=== PATIENT | male | born 1990 | race African-American/Black ===

== ENCOUNTER 2018-02-07 00:11 | Emergency (ER) | payer MEDICAID, SELFPAY ==
[2018-02-07 00:12] VITALS: BP 134/75; PULSE 70; RESP 16; TEMP 36.9; O2SAT 97; BMI 20.3
--- NOTE | 2018-02-07 00:31 | ED.VISSUMM ---
- ER Visit Summary Date of Service: 02/07/18 Chief Complaint: [] Developed nausea and vomiting yesterday 2 episodes today and yesterday. No blood. 2 episodes of loose watery diarrhea today. No home treatment. Positive sick contacts with the same. History of Present Illness: The patient is a 27 M [] Physical Examination: [] Vital signs reviewed General: Well-nourished well-developed Head: Normocephalic atraumatic Eyes: Pupils equal round and reactive to light extraocular movements intact ENT: TMs clear no hemotympanum no trauma Neck: Nontender full range of motion Cardiovascular: Regular rate rhythm no murmurs normal S1-S2 Respiratory: No distress clear to auscultation bilaterally chest nontender Abdomen: Soft nontender nondistended normal bowel sounds no masses Back: Nontender no CVA tenderness Extremities: Nontender active range of motion ?4 extremities no trauma Skin: Normal color no trauma Neuro alert oriented cranial nerves II through XII intact normal strength sensation reflexes Test Results: [] Emergency Department Course and Treatment: [] Patient nontoxic. Abdominal exam benign. I think he likely has the stomach flu. Given Zofran and Imodium in the department and will continue these at home. Treatment Plan: [] Disposition: [] Impression: [] Nausea vomiting, diarrhea This note was generated with [employer] dictation software. It may contain incorrect words, spelling, and punctuation that were not noted in review of the chart prior to signing ED Disposition - Plan for ED Patient: Chief Complaint: Nausea/Vomiting/Diarrhea Referrals: Care Physician,No Primary [Primary Care Provider] -
--- NOTE | 2018-02-07 00:32 | ED.DEP ---
ED Disposition - Plan for ED Patient: Disposition: Home or Assisted Living Chief Complaint: Nausea/Vomiting/Diarrhea Instructions: ED Diet Vomiting Diarrhea Prescriptions: Ondansetron [Zofran Odt] 4 mg PO Q8H PRN PRN #10 tab PRN Reason: Nausea Referrals: Care Physician,No Primary [Primary Care Provider] - Jaylen Valdivia DO [NON CLINICAL AFFILIATE] -
[2018-02-07] MEDS: Loperamide 2 MG Capsule 4 MG PO (00:40)
[2018-02-07] MEDS: Ondansetron ODT 4 MG Tablet 8 MG PO (00:40)
[2018-02-07 00:45] VITALS: PULSE 85; O2SAT 100
== END 2018-02-07 00:46 | disposition home or self-care (01) ==
LOC: ED 00:36
PROVIDERS: Emergency Provider Emergency Medicine
DX: R11.2 Nausea with vomiting, unspecified (principal); R19.7 Diarrhea, unspecified
CPT/HCPCS: 99283

== ENCOUNTER 2018-02-19 16:17 | Emergency (ER) | payer MEDICAID, SELFPAY ==
[2018-02-19 16:18] VITALS: BP 146/84; PULSE 65; RESP 16; TEMP 36.6; O2SAT 100; BMI 20.3
--- NOTE | 2018-02-19 16:47 | RAD_ITS ---
STUDY: X-RAY - RIGHT SHOULDER REASON FOR EXAM: Male, 27 years old. Pain TECHNIQUE: 4 view(s) of the shoulder. COMPARISON: None. FINDINGS: There is no evidence of fracture or dislocation. There are no significant degenerative changes. There are no radiodense foreign bodies. RAD/Shoulder min 2 Views IMPRESSION: No fracture or dislocation. Electronically Signed: Bladimir Man, at 17:03 EDT Tel , Service support ,
--- NOTE | 2018-02-19 17:27 | ED.VISSUMM ---
- ER Visit Summary Date of Service: 02/19/18 Chief Complaint: Shoulder pain after landing on the right shoulder on the ground while playing football. History of Present Illness: The patient is a 27 M [id number]. He is playing football on Monday dove for a ball landed awkwardly on his right shoulder since that time he had pain in the right shoulder and decreased range of motion. No prior right shoulder surgery. No significant prior right shoulder injury. He denies any other injuries. Physical Examination: Well-appearing young male. Vital signs are stable afebrile. H EENT exam unremarkable atraumatic. C-spine nontender. Trachea midline. Lungs clear to auscultation bilaterally. Heart rate and rhythm no murmur. Chest wall nontender. Abdomen soft nontender nondistended no giving or masses. Normal bowel sounds no peritoneal signs. Pelvic girdle intact. Left upper and both lower extremities are nontender normal range of motion. No gross bony deformities. Neurovascular intact. Right shoulder is pain on palpation to the deltoid of his right shoulder. There is no bony deformity of the clavicle. He has decreased range of motion of the right shoulder with ABD duction and try to raise his shoulder above his head. There is no signs of dislocation. No bony deformity. The mid shaft distal humerus is nontender. He has full range of motion of the right elbow with no swelling or tenderness. The entire right forearm is nontender. No deformity. Normal range of motion to the elbow and wrist. Normal radial pulse to palpation. 5 out of 5 air traffic controller strength in the right hand nontender no deformity. Otherwise exam unremarkable. The shoulder blade is nontender. Test Results: Right shoulder x-ray shows no acute abnormality read both by myself and the radiologist. No fracture or dislocation. Emergency Department Course and Treatment: Pt. will be straight treated as a right shoulder strain and contusion. However if this does not improve he will be instructed to follow-up with Dr. Oziel Blake project economist for orthopedics for further evaluation of the right shoulder. Clinically and historically be very uncommon for this to be a rotator cuff injury. However if it does not improve and does not gain range of motion back he may need more advanced imaging. Treatment Plan: Ice to the right shoulder. Motrin for pain and inflammation. Call follow-up with Dr. Oziel Blake of orthopedics if your pain is not improving and he did not regain full range of motion for further evaluation. Disposition: Discharge Impression: Acute right shoulder pain and decreased range of motion secondary to shoulder contusion and strain. This note was generated with [employer] dictation software. It may contain incorrect words, spelling, and punctuation that were not noted in review of the chart prior to signing ED Disposition - Plan for ED Patient: Chief Complaint: Upper Extremity Injury Referrals: Care Physician,No Primary [Primary Care Provider] -
--- NOTE | 2018-02-19 17:31 | ED.DCSUM_ITS ---
- ER Visit Summary Date of Service: 02/19/18 Chief Complaint: Shoulder pain after landing on the right shoulder on the ground while playing football. History of Present Illness: The patient is a 27 M [id number]. He is playing football on Monday dove for a ball landed awkwardly on his right shoulder since that time he had pain in the right shoulder and decreased range of motion. No prior right shoulder surgery. No significant prior right shoulder injury. He denies any other injuries. Physical Examination: Well-appearing young male. Vital signs are stable afebrile. H EENT exam unremarkable atraumatic. C-spine nontender. Trachea midline. Lungs clear to auscultation bilaterally. Heart rate and rhythm no murmur. Chest wall nontender. Abdomen soft nontender nondistended no giving or masses. Normal bowel sounds no peritoneal signs. Pelvic girdle intact. Left upper and both lower extremities are nontender normal range of motion. No gross bony deformities. Neurovascular intact. Right shoulder is pain on palpation to the deltoid of his right shoulder. There is no bony deformity of the clavicle. He has decreased range of motion of the right shoulder with ABD duction and try to raise his shoulder above his head. There is no signs of dislocation. No bony deformity. The mid shaft distal humerus is nontender. He has full range of motion of the right elbow with no swelling or tenderness. The entire right forearm is nontender. No deformity. Normal range of motion to the elbow and wrist. Normal radial pulse to palpation. 5 out of 5 student development dean strength in the right hand nontender no deformity. Otherwise exam unremarkable. The shoulder blade is nontender. Test Results: Right shoulder x-ray shows no acute abnormality read both by myself and the radiologist. No fracture or dislocation. Emergency Department Course and Treatment: Pt. will be straight treated as a right shoulder strain and contusion. However if this does not improve he will be instructed to follow-up with Dr. Oziel Blake energy sales consultant for orthopedics for further evaluation of the right shoulder. Clinically and historically be very uncommon for this to be a rotator cuff injury. However if it does not improve and does not gain range of motion back he may need more advanced imaging. Treatment Plan: Ice to the right shoulder. Motrin for pain and inflammation. Call follow-up with Dr. Oziel Blake of orthopedics if your pain is not improving and he did not regain full range of motion for further evaluation. Disposition: Discharge Impression: Acute right shoulder pain and decreased range of motion secondary to shoulder contusion and strain. This note was generated with [employer] dictation software. It may contain incorrect words, spelling, and punctuation that were not noted in review of the chart prior to signing ED Disposition - Plan for ED Patient: Chief Complaint: Upper Extremity Injury Referrals: Care Physician,No Primary [Primary Care Provider] -
--- NOTE | 2018-02-19 17:31 | ED.DEP ---
ED Disposition - Plan for ED Patient: Disposition: Home or Assisted Living Chief Complaint: Upper Extremity Injury Instructions: ED Contusion Upper Ext Referrals: Oziel Blake DO [STAFF PHYSICIAN] - 3-5 Days if not improving Additional Instructions: Ice to right shoulder. Motrin for pain and inflammation. Call and follow-up with Dr. Oziel Blake for further evaluation of your shoulder if not improving in 3-5 days. The pain should steadily improve and you should get full range of motion back. If you do not need further evaluation of the shoulder and to ensure that he did not injure your rotator cuff.
[2018-02-19 17:47] VITALS: BP 138/78; PULSE 76; RESP 18
== END 2018-02-19 17:48 | disposition home or self-care (01) ==
PROVIDERS: Emergency Provider Emergency Medicine
DX: M25.511 Pain in right shoulder (principal); S40.011A Contusion of right shoulder, initial encounter; S46.911A Strain of unspecified muscle, fascia and tendon at shoulder and upper arm level, right arm, initial encounter; X50.1XXA Overexertion from prolonged static or awkward postures, initial encounter; Y93.61 Activity, american tackle football; Y92.9 Unspecified place or not applicable
CPT/HCPCS: 73030; 99283